=== PATIENT | male | born 1990 | race Caucasian/White ===

== ENCOUNTER 2025-06-20 10:53 | Inpatient (IN) | payer OTHER ==
[~2025-06-20] VITALS: Ht 177.8 cm; Wt 90.9 kg
[2025-06-20 11:23] LABS: PLATELET COUNT (AUTO) 254 K/uL (150-450); RED BLOOD CELL COUNT(AUTO) 4.41 MIL/uL (4.50-5.90); RED CELL DISTRIBUTION WIDTH 13.9 % (11.5-14.5); WHITE BLOOD COUNT (AUTO) 5.5 K/uL (4.5-11.0)
[2025-06-20 11:29] LABS: CALCIUM, TOTAL 9.3 mg/dL (8.8-10.5); CREATININE 1.15 mg/dL (0.60-1.30); GLOMERULAR FILTR. RATE CALC > 60 mL/min (>60); GLUCOSE,RANDOM 99 mg/dL (70-110); SODIUM SERUM 140 mmol/L (136-145); UREA NITROGEN, BLOOD 21 mg/dL (7-18)
[2025-06-20 11:35] LABS: ASPARTATE AMINOTRANSFERASE 19 U/L (15-37); CREATINE KINASE, TOTAL ONLY 292 U/L (39-308); TOTAL PROTEIN, SERUM 7.9 g/dL (6.4-8.2)
[2025-06-20 11:36] LABS: ALCOHOL, BLOOD (SERUM) < 3 mg/dL (0-10)
[2025-06-20] MEDS: FAMOTIDINE 20 MG/2 ML VIAL IVP ONE (11:36)
[2025-06-20] MEDS: ACETAMINOPHEN 500 MG TABLET PO ONE (11:36)
[2025-06-20 11:39] LABS: TROPONIN I-HIGH SENSITIVITY 7 ng/L (<76)
[2025-06-20] MEDS ORDERED: ACETAMINOPHEN 325 MG TABLET PO PRN (13:00)
[2025-06-20] MEDS ORDERED: MAGNESIUM HYDROXIDE SUSPENSION 30 ML UDCUP PO PRN (13:00)
[2025-06-20 15:53] LABS: TROPONIN I-HIGH SENSITIVITY 6 ng/L (<76)
[2025-06-20 21:42] VITALS: BP 125/90; PULSE 86; RESP 18; TEMP 97.8; O2SAT 100
[2025-06-20] MEDS ORDERED: LEVOFLOXACIN 750 MG/D5% WATER 150 ML IV SCH (22:00)
[2025-06-21] MEDS ORDERED: VANCOMYCIN 750 MG/WATER(PEG) 150 ML IV SCH
[2025-06-21 05:44] VITALS: BP 117/75; PULSE 78; RESP 18; TEMP 97.5; O2SAT 100
[2025-06-21 06:39] LABS: APPEARANCE,URINE CLEAR (CLEAR); GLUCOSE, URINE (UA) NEGATIVE (NEGATIVE); LEUKOCYTE ESTERASE ,URINE NEGATIVE (NEGATIVE); NITRATE,URINE NEGATIVE (NEGATIVE); OCCULT BLOOD,URINE NEGATIVE (NEGATIVE); PH,URINE DRUG SCREEN 5.5 (5.0-8.0); SPECIFIC GRAVITIY, URINE 1.029 (1.003-1.030)
[2025-06-21 06:45] LABS: ALCOHOL, URINE DRUG SCREEN NEGATIVE (NEGATIVE); AMPHET/METH SCREEN,URINE NEGATIVE (NEGATIVE); BARBITURATE SCREEN, URINE NEGATIVE (NEGATIVE); CANNABINOID SCREEN,URINE NEGATIVE (NEGATIVE); COCAINE SCREEN,URINE NEGATIVE (NEGATIVE); METHADONE SCREEN, URINE NEGATIVE (NEGATIVE)
[2025-06-21 08:18] VITALS: BP 115/69; PULSE 60; RESP 18; TEMP 97.9; O2SAT 98
[2025-06-21] MEDS: FAMOTIDINE 20 MG TABLET PO SCH (08:50)
[2025-06-21 20:19] VITALS: BP 120/72; PULSE 67; RESP 18; TEMP 97.9; O2SAT 99
[2025-06-21] MEDS: ZOLPIDEM TARTRATE 5 MG TABLET PO PRN (21:40)
[2025-06-22 04:04] VITALS: BP 115/73; PULSE 73; RESP 18; TEMP 97.9; O2SAT 99
[2025-06-22 08:20] VITALS: BP 120/77; PULSE 56; RESP 18; TEMP 97.9; O2SAT 98
[2025-06-22 19:35] VITALS: BP 122/70; PULSE 63; RESP 18; TEMP 98.2; O2SAT 99
[2025-06-23 05:28] VITALS: BP 107/67; PULSE 59; RESP 20; TEMP 97.7; O2SAT 98
[2025-06-23 08:00] VITALS: BP 112/71; PULSE 61; RESP 20; TEMP 97.7; O2SAT 100
[2025-06-23] MEDS ORDERED: BUSP5TAB20 PO (13:27)
[2025-06-23] MEDS ORDERED: TRAZ-252 PO (13:28)
[2025-06-23] MEDS ORDERED: FAMO20 PO (13:28)
[2025-06-23] MEDS ORDERED: ACET-2247 PO (13:29)
== END 2025-06-23 13:00 | DRG 313 ==
LOC: EMS 10:56 → EDH 12:53 → 6N 16:55
PROVIDERS: ADMIT Internal Medicine; ATTEND Internal Medicine
DX: R07.89 Other chest pain (principal); R45.851 Suicidal ideations; G47.00 Insomnia, unspecified; F41.1 Generalized anxiety disorder; Z63.4 Disappearance and death of family member; Z79.899 Other long term (current) drug therapy
CPT/HCPCS: 71045; 80048; 80076; 80307; 81003; 82550; 83880; 84484; 85025; 93005; 93306; 99285; G0480; J1956; 36415-L1; 36415-TC